=== PATIENT | male | born 1965 | race Caucasian/White ===

== ENCOUNTER 2016-12-15 16:16 | Emergency (ER) | payer OTHER ==
[2016-12-15 16:57] LABS: BILIRUBIN NEGATIVE (NEGATIVE); BLOOD NEGATIVE Ery/uL (NEGATIVE); CLARITY CLEAR (CLEAR); COLOR YELLOW (YELLOW); GLUCOSE (U) NORMAL (NORMAL); KETONE (U) NEGATIVE (NEGATIVE); LEUKOCYTES NEGATIVE Leu/uL (NEGATIVE); NITRITE NEGATIVE (NEGATIVE); PROTEIN NEGATIVE (NEGATIVE); UROBILINOGEN 0.2 mg/dL (0.2-1.0); pH 5.5 (5.0-9.0)
[2016-12-15 17:03] LABS: BASOPHIL 0.1 % (0-2); EOSINOPHIL 2.4 % (0-5); HCT 41.5 % (42.0-52.0); HGB 14.5 g/dl (13.2-18.0); LYMPHOCYTE 32.7 % (15-48); MCH 30.6 pg (25.0-31.0); MCHC 34.9 g/dL (32.0-36.0); MCV 87.6 fL (78.0-100.0); MONOCYTE 9.7 % (0-12); MPV 8.8 fL (6.0-9.5); NEUTROPHIL 55.1 % (41-80); PLT 220 K/uL (150-400); RBC 4.74 M/uL (4.70-6.00); RDW 13.3 % (11.5-14.0); WBC 7.6 K/uL (4.0-10.5)
[2016-12-15 17:22] LABS: ALBUMIN 4.1 g/dL (3.5-5.0); BILIRUBIN - TOTAL 0.4 mg/dL (0.1-1.0); CREATININE 0.9 mg/dL (0.7-1.2); POTASSIUM 4.4 mmol/L (3.5-5.1); TOTAL PROTEIN 7.1 g/dL (6.4-8.3)
== END 2016-12-15 20:40 | disposition home or self-care (01) ==
LOC: FER 16:16
PROVIDERS: Internal Medicine
DX: S16.1XXA Strain of muscle, fascia and tendon at neck level, initial encounter (principal); S80.01XA Contusion of right knee, initial encounter; S20.211A Contusion of right front wall of thorax, initial encounter; S30.1XXA Contusion of abdominal wall, initial encounter; F41.9 Anxiety disorder, unspecified; G20 Parkinson's disease; Z79.899 Other long term (current) drug therapy; V49.50XA Passenger injured in collision with unspecified motor vehicles in traffic accident, initial encounter
CPT/HCPCS: 36415; 70450; 71260; 72125; 73560; 80053; 81003; 83690; 85025; J1170; J1885; J2405; Q9967